=== PATIENT | female | born 1975 | race Caucasian/White ===

== ENCOUNTER → 2022-10-14 | Day surgery (SDC) | payer BC ==
[~2022-10-14] MED LIST: Ketorolac 30 MG/ML SDV ONE; Labetalol 100 MG/20 ML MDV ONE; Lactated Ringers 1,000 ML IV SCH; Lidocaine 0.5% 50 ML SDV ONE; Midazolam 1 MG/ML 2 ML SDV ONE; Ondansetron 4 MG/2 ML SDV ONE; Propofol 200 MG/20 ML SDV ONE; fentaNYL 50 MCG/ML SDV ONE
== END ==
LOC: CC.SDS 09:31
PROVIDERS: ATTEND Surgery
DX: G56.03 Carpal tunnel syndrome, bilateral upper limbs (principal); E87.6 Hypokalemia; Z88.5 Allergy status to narcotic agent; Z79.899 Other long term (current) drug therapy; Z98.890 Other specified postprocedural states
CPT/HCPCS: 36415; 84703; J1885; J2250; J2405; J2704; J3010; J3490; J7120

== ENCOUNTER → 2023-02-10 | Day surgery (SDC) | payer BC ==
[~2023-02-10] MED LIST changes: +Flumazenil 0.1 MG/ML 10 ML MDV ONE; +Ketamine 200 MG/20 ML MDV ONE; -Ondansetron 4 MG/2 ML SDV ONE
== END ==
LOC: CC.SDS 09:00
PROVIDERS: ATTEND Surgery
DX: G56.02 Carpal tunnel syndrome, left upper limb (principal); Z88.5 Allergy status to narcotic agent; Z79.899 Other long term (current) drug therapy
CPT/HCPCS: 36415; 64721; 84703; J1885; J2250; J2704; J3010; J3490; J7120; 01810